=== PATIENT | female | born 1935 | race Caucasian/White ===

== ENCOUNTER 2020-12-13 12:46 | Inpatient (IN) ==
[2020-12-13 13:31] LABS: Basophils # 0.1 10*3/uL (0.0-0.2); Basophils % 0.3 % (0.0-0.8); Eosinophils % 0.2 % (0.00-10.9); Hematocrit 38.2 VOL% (35.7-47.0); Hemoglobin 12.4 GM/DL (12.0-16.0); Immature Granulocytes % 1.5 %; Immature Granulocytes Absolute 0.34 #; Lymphocytes # 2.3 10*3/uL (1.4-4.0); Lymphocytes % 10.4 % (21.3-54.2); Mean Corpuscular HGB Conc 32.5 GM/DL (32-36); Mean Corpuscular Volume 93.9 FL (87-102); Mean Platelet Volume 10.1 FL (9.6-12.0); Monocytes % 5.8 % (1.7-12.7); Neutrophils % 81.8 % (38.7-73.9); Platelet Count 347 T/CUMM (130-400); Red Blood Count 4.07 MC/CUMM (3.8-5.5); Red Cell Distribution Width 14.6 % (9.3-17.3); White Blood Count 22.5 T/CUMM (4-12)
[2020-12-13 14:00] LABS: Albumin 2.2 G/DL (3.4-5.0); Bilirubin,Total 0.6 MG/DL (0.2-1.0); Calcium 9.3 MG/DL (8.5-10.1); Potassium 4.1 MMOL/L (3.5-5.1); Total Protein 6.4 G/DL (6.4-8.2)
[2020-12-13] MEDS ORDERED: SODIUM CHLORIDE 0.9% 1,000 ML IV STA (14:00)
[2020-12-13 14:07] LABS: Lymphocytes 4 % (20-55); Segmented Neutrophils 93 % (50-85); Total Cells Counted 100
[2020-12-13 14:08] LABS: Macrocytosis 1+; Platelet Estimate Normal
[2020-12-13 14:09] LABS: Polychromasia Slight
[2020-12-13 14:33] LABS: Bilirubin,Urine Negative (Negative); Blood, Urine Negative (Negative); Glucose,Urine (UA) Negative (Negative); Ketones,Urine 5 mg/dL (Negative); Mucus,Urine Occasional /LPF (Occasional); Nitrite,Urine Negative (Negative); Protein,Urine 30 MG/DL; Urine Appearance CLOUDY (Clear); Urine Color Amber (Yellow); Urine Specific Gravity 1.014 (1.001-1.035); Urine Urobilinogen < 2.0 EU/DL (0.2-1.0); WBC,Urine 1 /HPF (0-6)
[2020-12-13] MEDS ORDERED: hydrALAZINE 20 MG/1 ML VIAL IV PRN (15:20)
[2020-12-13] MEDS ORDERED: ACETAMINOPHEN 325 MG TABLET PO PRN (15:20)
[2020-12-13] MEDS ORDERED: DEXTROSE 50% 25 GM/50 ML VIAL IV PRN (15:20)
[2020-12-13] MEDS ORDERED: ONDANSETRON 4 MG/2 ML VIAL IV PRN (15:20)
[2020-12-13] MEDS ORDERED: GLUCAGON 1 MG VIAL IM PRN (15:20)
[2020-12-13] MEDS ORDERED: DOCUSATE SODIUM 100 MG CAPSULE PO PRN (15:20)
[2020-12-13] MEDS ORDERED: cefTRIAXone 1,000 MG VIAL ONE (15:47)
[2020-12-13] MEDS ORDERED: cefTRIAXone 2,000 MG in SYRINGE 1 EACH IV ONE (16:00)
[2020-12-13] MEDS: SODIUM CHLORIDE 0.9% 1,000 ML IV SCH (17:30)
[2020-12-13] MEDS: INSULIN LISPRO 100 UNIT/ML SUBCUT SCH ×2 (17:43→21:07)
[2020-12-13] MEDS: MEMANTINE 5 MG TABLET PO SCH (21:01)
[2020-12-13] MEDS: COLCHICINE 0.6 MG CAPSULE PO SCH (21:01)
[2020-12-13] MEDS: OLANZapine 2.5 MG TABLET PO SCH (21:01)
[2020-12-13] MEDS: FUROSEMIDE 20 MG TABLET PO SCH (21:02)
[2020-12-13] MEDS: ENOXAPARIN 40 MG/0.4 ML SYRINGE SUBCUT SCH (21:02)
[2020-12-14 05:26] LABS: Basophils # 0.1 10*3/uL (0.0-0.2); Basophils % 0.4 % (0.0-0.8); Eosinophils # 0.2 10*3/uL (0.0-0.87); Eosinophils % 1.1 % (0.00-10.9); Hematocrit 34.2 VOL% (35.7-47.0); Hemoglobin 11.1 GM/DL (12.0-16.0); Immature Granulocytes % 2.5 %; Immature Granulocytes Absolute 0.39 #; Lymphocytes # 2.3 10*3/uL (1.4-4.0); Lymphocytes % 14.3 % (21.3-54.2); Mean Corpuscular HGB Conc 32.5 GM/DL (32-36); Mean Corpuscular Volume 94.5 FL (87-102); Mean Platelet Volume 10.5 FL (9.6-12.0); Monocytes % 7.3 % (1.7-12.7); Neutrophils % 74.4 % (38.7-73.9); Platelet Count 303 T/CUMM (130-400); Red Blood Count 3.62 MC/CUMM (3.8-5.5); Red Cell Distribution Width 14.6 % (9.3-17.3); White Blood Count 15.8 T/CUMM (4-12)
[2020-12-14 05:51] LABS: Albumin 1.8 G/DL (3.4-5.0); Bilirubin,Total 1.2 MG/DL (0.2-1.0); Calcium 8.6 MG/DL (8.5-10.1); Osmolality,Calculated 277.5 MOS/KG (273-304); Potassium 3.1 MMOL/L (3.5-5.1); Thyroid Stimulating Hormone 0.799 uIU/ml (0.358-3.74); Total Protein 5.8 G/DL (6.4-8.2)
[2020-12-14] MEDS: LEVOTHYROXINE 75 MCG TABLET PO SCH (06:10)
[2020-12-14] MEDS: INSULIN LISPRO 100 UNIT/ML SUBCUT SCH ×4 (07:36→20:53)
[2020-12-14] MEDS: SERTRALINE 50 MG TABLET PO SCH (08:09)
[2020-12-14] MEDS: MULTIVITAMIN (CENTRUM) TABLET PO SCH (08:09)
[2020-12-14] MEDS: COLCHICINE 0.6 MG CAPSULE PO SCH ×2 (08:09→20:37)
[2020-12-14] MEDS: OLANZapine 2.5 MG TABLET PO SCH ×2 (08:09→20:37)
[2020-12-14] MEDS: DONEPEZIL 10 MG TABLET PO SCH (08:09)
[2020-12-14] MEDS: MONTELUKAST 10 MG TABLET PO SCH (08:09)
[2020-12-14] MEDS: MEMANTINE 5 MG TABLET PO SCH ×2 (08:10→20:37)
[2020-12-14] MEDS: COENZYME Q10 50 MG PO SCH (08:10)
[2020-12-14] MEDS: FUROSEMIDE 20 MG TABLET PO SCH ×2 (08:10→20:37)
[2020-12-14] MEDS: PANTOPRAZOLE 40 MG TABLET PO SCH (08:10)
[2020-12-14] MEDS: SODIUM CHLORIDE 0.9% 1,000 ML IV SCH (08:21)
[2020-12-14] MEDS: POTASSIUM CHLORIDE 10 MEQ TABLET PO SCH (09:57)
[2020-12-14] MEDS: cefTRIAXone 2,000 MG in SYRINGE 1 EACH IV SCH (17:58)
[2020-12-14] MEDS: ENOXAPARIN 40 MG/0.4 ML SYRINGE SUBCUT SCH (20:37)
[2020-12-15] MEDS: SODIUM CHLORIDE 0.9% 1,000 ML IV SCH (01:05)
[2020-12-15 06:19] LABS: Basophils # 0.1 10*3/uL (0.0-0.2); Basophils % 0.4 % (0.0-0.8); Eosinophils # 0.1 10*3/uL (0.0-0.87); Eosinophils % 0.7 % (0.00-10.9); Hematocrit 32.4 VOL% (35.7-47.0); Hemoglobin 10.9 GM/DL (12.0-16.0); Immature Granulocytes % 1.7 %; Immature Granulocytes Absolute 0.34 #; Lymphocytes # 1.9 10*3/uL (1.4-4.0); Lymphocytes % 9.4 % (21.3-54.2); Mean Corpuscular HGB Conc 33.6 GM/DL (32-36); Mean Platelet Volume 10.8 FL (9.6-12.0); Monocytes % 6.4 % (1.7-12.7); Neutrophils % 81.4 % (38.7-73.9); Platelet Count 298 T/CUMM (130-400); Red Blood Count 3.52 MC/CUMM (3.8-5.5); Red Cell Distribution Width 14.7 % (9.3-17.3); White Blood Count 19.6 T/CUMM (4-12)
[2020-12-15] MEDS: LEVOTHYROXINE 75 MCG TABLET PO SCH (06:30)
[2020-12-15 07:03] LABS: Calcium 8.4 MG/DL (8.5-10.1); Potassium 2.9 MMOL/L (3.5-5.1)
[2020-12-15] MEDS: INSULIN LISPRO 100 UNIT/ML SUBCUT SCH ×4 (07:29→20:55)
[2020-12-15] MEDS: COLCHICINE 0.6 MG CAPSULE PO SCH ×2 (08:41→20:53)
[2020-12-15] MEDS: OLANZapine 2.5 MG TABLET PO SCH ×2 (08:41→20:53)
[2020-12-15] MEDS: COENZYME Q10 50 MG PO SCH (08:41)
[2020-12-15] MEDS: PANTOPRAZOLE 40 MG TABLET PO SCH (08:42)
[2020-12-15] MEDS: DONEPEZIL 10 MG TABLET PO SCH (08:42)
[2020-12-15] MEDS: FUROSEMIDE 20 MG TABLET PO SCH (08:42)
[2020-12-15] MEDS: POTASSIUM CHLORIDE 10 MEQ TABLET PO SCH (08:42)
[2020-12-15] MEDS: MEMANTINE 5 MG TABLET PO SCH ×2 (08:42→20:53)
[2020-12-15] MEDS: MONTELUKAST 10 MG TABLET PO SCH (08:42)
[2020-12-15] MEDS: SERTRALINE 50 MG TABLET PO SCH (08:42)
[2020-12-15] MEDS: MULTIVITAMIN (CENTRUM) TABLET PO SCH (08:42)
[2020-12-15] MEDS: SODIUM CHLOR 0.9% KCL 20 MEQ 20 MEQ/1,000 ML BAG IV SCH (09:46)
[2020-12-15] MEDS: cefTRIAXone 2,000 MG in SYRINGE 1 EACH IV SCH (16:29)
[2020-12-15] MEDS: ENOXAPARIN 40 MG/0.4 ML SYRINGE SUBCUT SCH (20:53)
[2020-12-16] MEDS: SODIUM CHLOR 0.9% KCL 20 MEQ 20 MEQ/1,000 ML BAG IV SCH (05:01)
[2020-12-16 05:29] LABS: Basophils # 0.1 10*3/uL (0.0-0.2); Basophils % 0.6 % (0.0-0.8); Eosinophils # 0.2 10*3/uL (0.0-0.87); Hematocrit 31.7 VOL% (35.7-47.0); Hemoglobin 10.8 GM/DL (12.0-16.0); Immature Granulocytes % 2.3 %; Immature Granulocytes Absolute 0.41 #; Lymphocytes # 1.8 10*3/uL (1.4-4.0); Lymphocytes % 10.1 % (21.3-54.2); Mean Corpuscular HGB Conc 34.1 GM/DL (32-36); Mean Corpuscular Volume 90.8 FL (87-102); Mean Platelet Volume 10.7 FL (9.6-12.0); Monocytes % 6.1 % (1.7-12.7); Neutrophils % 79.9 % (38.7-73.9); Platelet Count 299 T/CUMM (130-400); Red Blood Count 3.49 MC/CUMM (3.8-5.5); Red Cell Distribution Width 14.6 % (9.3-17.3); White Blood Count 17.6 T/CUMM (4-12)
[2020-12-16 05:46] LABS: Calcium 8.1 MG/DL (8.5-10.1); Potassium 2.7 MMOL/L (3.5-5.1)
[2020-12-16] MEDS: LEVOTHYROXINE 75 MCG TABLET PO SCH (06:19)
[2020-12-16] MEDS: SERTRALINE 50 MG TABLET PO SCH (09:35)
[2020-12-16] MEDS: MULTIVITAMIN (CENTRUM) TABLET PO SCH (09:35)
[2020-12-16] MEDS: MEMANTINE 5 MG TABLET PO SCH ×2 (09:35→22:33)
[2020-12-16] MEDS: PANTOPRAZOLE 40 MG TABLET PO SCH (09:35)
[2020-12-16] MEDS: COLCHICINE 0.6 MG CAPSULE PO SCH ×2 (09:35→22:33)
[2020-12-16] MEDS: DONEPEZIL 10 MG TABLET PO SCH (09:35)
[2020-12-16] MEDS: MONTELUKAST 10 MG TABLET PO SCH (09:35)
[2020-12-16] MEDS: COENZYME Q10 50 MG PO SCH (09:36)
[2020-12-16] MEDS: FUROSEMIDE 20 MG TABLET PO SCH (09:36)
[2020-12-16] MEDS: POTASSIUM CHLORIDE 10 MEQ TABLET PO SCH (09:36)
[2020-12-16] MEDS: OLANZapine 2.5 MG TABLET PO SCH ×2 (09:36→22:33)
[2020-12-16] MEDS: POTASSIUM CHLORIDE 20 MEQ TABLET PO SCH ×2 (09:39→12:30)
[2020-12-16] MEDS: INSULIN LISPRO 100 UNIT/ML SUBCUT SCH ×4 (09:48→22:23)
[2020-12-16] MEDS ORDERED: POTASSIUM CHLORIDE 20 MEQ TABLET PO SCH (12:30)
[2020-12-16] MEDS: cefTRIAXone 2,000 MG in SYRINGE 1 EACH IV SCH (18:50)
[2020-12-17 06:19] LABS: Calcium 8.6 MG/DL (8.5-10.1); Osmolality,Calculated 275.7 MOS/KG (273-304); Potassium 4.4 MMOL/L (3.5-5.1)
[2020-12-17] MEDS: LEVOTHYROXINE 75 MCG TABLET PO SCH (06:19)
[2020-12-17] MEDS ORDERED: MAGNESIUM SULF RIDER 4 GM in PREMIX 1 EACH IV PRN (07:03)
[2020-12-17] MEDS ORDERED: MAGNESIUM SULF RIDER 2 GM in PREMIX 1 EACH IV PRN (07:03)
[2020-12-17 07:19] LABS: Basophils # 0.1 10*3/uL (0.0-0.2); Basophils % 0.7 % (0.0-0.8); Eosinophils # 0.3 10*3/uL (0.0-0.87); Eosinophils % 1.6 % (0.00-10.9); Hematocrit 36.3 VOL% (35.7-47.0); Hemoglobin 12.7 GM/DL (12.0-16.0); Immature Granulocytes % 3.1 %; Immature Granulocytes Absolute 0.58 #; Lymphocytes # 2.9 10*3/uL (1.4-4.0); Lymphocytes % 15.2 % (21.3-54.2); Mean Corpuscular Volume 89.6 FL (87-102); Mean Platelet Volume 12.4 FL (9.6-12.0); Monocytes % 6.3 % (1.7-12.7); Neutrophils % 73.1 % (38.7-73.9); Platelet Count 277 T/CUMM (130-400); Red Blood Count 4.05 MC/CUMM (3.8-5.5); Red Cell Distribution Width 14.8 % (9.3-17.3); White Blood Count 18.9 T/CUMM (4-12)
[2020-12-17 07:31] LABS: Band Neutrophils 1 % (0-10); Eosinophils 3 % (0-10); Lymphocytes 13 % (20-55); Microcytosis Slight; Ovalocytes Slight; Platelet Estimate Adequate; Segmented Neutrophils 77 % (50-85); Total Cells Counted 100
[2020-12-17] MEDS ORDERED: LACTATED RINGERS 1,000 ML IV SCH (08:00)
[2020-12-17] MEDS ORDERED: fentaNYL 100 MCG/2 ML VIAL ONE (08:20)
[2020-12-17] MEDS ORDERED: BUPIVACAINE MPF 0.25% 30 ML VIAL ONE (08:20)
[2020-12-17] MEDS ORDERED: ETOMIDATE 40 MG/20 ML VIAL IV ONE (08:21)
[2020-12-17] MEDS ORDERED: propofoL 200 MG/20 ML VIAL IV ONE (08:21)
[2020-12-17] MEDS ORDERED: MIDAZOLAM 2 MG/2 ML VIAL ONE (08:23)
[2020-12-17] MEDS ORDERED: LIDOCAINE 2% 5 ML VIAL ONE (08:23)
[2020-12-17] MEDS: INSULIN LISPRO 100 UNIT/ML SUBCUT SCH ×4 (09:48→22:07)
[2020-12-17] MEDS: OLANZapine 2.5 MG TABLET PO SCH ×2 (11:01→22:25)
[2020-12-17] MEDS: DONEPEZIL 10 MG TABLET PO SCH (11:01)
[2020-12-17] MEDS: MEMANTINE 5 MG TABLET PO SCH ×2 (11:01→22:26)
[2020-12-17] MEDS: PANTOPRAZOLE 40 MG TABLET PO SCH (11:02)
[2020-12-17] MEDS: COLCHICINE 0.6 MG CAPSULE PO SCH ×2 (11:02→22:25)
[2020-12-17] MEDS: COENZYME Q10 100 MG CAPSULE PO SCH (11:02)
[2020-12-17] MEDS: MULTIVITAMIN (CENTRUM) TABLET PO SCH (11:02)
[2020-12-17] MEDS: SERTRALINE 50 MG TABLET PO SCH (11:02)
[2020-12-17] MEDS: POTASSIUM CHLORIDE 10 MEQ TABLET PO SCH (11:02)
[2020-12-17] MEDS: MONTELUKAST 10 MG TABLET PO SCH (11:02)
[2020-12-17] MEDS: FUROSEMIDE 20 MG TABLET PO SCH (11:02)
[2020-12-17] MEDS ORDERED: SODIUM CHLORIDE 0.9% 500 ML IV ONE (11:53)
[2020-12-17] MEDS: cefTRIAXone 2,000 MG in SYRINGE 1 EACH IV SCH (17:51)
[2020-12-18] MEDS: LEVOTHYROXINE 75 MCG TABLET PO SCH ×2 (05:22→07:02)
[2020-12-18 05:59] LABS: Basophils # 0.1 10*3/uL (0.0-0.2); Basophils % 0.6 % (0.0-0.8); Eosinophils # 0.5 10*3/uL (0.0-0.87); Eosinophils % 2.6 % (0.00-10.9); Hematocrit 31.8 VOL% (35.7-47.0); Hemoglobin 10.5 GM/DL (12.0-16.0); Immature Granulocytes % 1.9 %; Immature Granulocytes Absolute 0.33 #; Lymphocytes # 2.2 10*3/uL (1.4-4.0); Lymphocytes % 12.9 % (21.3-54.2); Mean Platelet Volume 10.3 FL (9.6-12.0); Platelet Count 303 T/CUMM (130-400); Red Blood Count 3.42 MC/CUMM (3.8-5.5); Red Cell Distribution Width 14.9 % (9.3-17.3); White Blood Count 17.1 T/CUMM (4-12)
[2020-12-18 06:15] LABS: Calcium 8.3 MG/DL (8.5-10.1); Osmolality,Calculated 272.8 MOS/KG (273-304); Potassium 3.1 MMOL/L (3.5-5.1)
[2020-12-18] MEDS: FUROSEMIDE 20 MG TABLET PO SCH (08:43)
[2020-12-18] MEDS: MEMANTINE 5 MG TABLET PO SCH (08:44)
[2020-12-18] MEDS: POTASSIUM CHLORIDE 10 MEQ TABLET PO SCH (08:44)
[2020-12-18] MEDS: OLANZapine 2.5 MG TABLET PO SCH (08:44)
[2020-12-18] MEDS: SERTRALINE 50 MG TABLET PO SCH (08:44)
[2020-12-18] MEDS: DONEPEZIL 10 MG TABLET PO SCH (08:44)
[2020-12-18] MEDS: PANTOPRAZOLE 40 MG TABLET PO SCH (08:44)
[2020-12-18] MEDS: COENZYME Q10 100 MG CAPSULE PO SCH (08:44)
[2020-12-18] MEDS: MULTIVITAMIN (CENTRUM) TABLET PO SCH (08:44)
[2020-12-18] MEDS: COLCHICINE 0.6 MG CAPSULE PO SCH (08:44)
[2020-12-18] MEDS: MONTELUKAST 10 MG TABLET PO SCH (08:44)
[2020-12-18] MEDS: INSULIN LISPRO 100 UNIT/ML SUBCUT SCH (09:06)
[2020-12-18] MEDS ORDERED: SODIUM HYPOCHLORITE 0.25% IRRIG 473 ML BOTTLE TOP SCH (10:00)
[2020-12-18] MEDS ORDERED: POTASSIUM CHLORIDE 20 MEQ TABLET PO ONE (11:00)
[2020-12-18 11:49] VITALS: BP 119/53
== END 2020-12-18 12:16 | DRG 570 ==
LOC: EDBD → EDUNIT# → N.EDINP 12:46 → N.ED 12:46 → SUATTDRO 15:20 → N.EDINP 16:44 → N.5E 17:18
PROVIDERS: ADMIT Emergency Medicine; ATTEND Internal Medicine

== ENCOUNTER 2021-01-01 11:07 | Inpatient (IN) ==
[2021-01-01 12:08] LABS: Bilirubin,Urine Negative (Negative); Blood, Urine Small mg/dL (Negative); Glucose,Urine (UA) Negative (Negative); Ketones,Urine 5 mg/dL (Negative); Mucus,Urine Occasional /LPF (Occasional); Nitrite,Urine Negative (Negative); Protein,Urine Negative; RBC,Urine 14 /HPF (0-4); Squamous Epithelial Cell,Urine Few /HPF (0-10); Urine Appearance Slightly Hazy (Clear); Urine Color Amber (Yellow); Urine Specific Gravity 1.017 (1.001-1.035); Urine Urobilinogen < 2.0 EU/DL (0.2-1.0); WBC,Urine 2 /HPF (0-6)
[2021-01-01 12:24] LABS: Basophils # 0.1 10*3/uL (0.0-0.2); Basophils % 0.3 % (0.0-0.8); Hematocrit 36.8 VOL% (35.7-47.0); Hemoglobin 12.1 GM/DL (12.0-16.0); Lymphocytes # 0.9 10*3/uL (1.4-4.0); Lymphocytes % 4.2 % (21.3-54.2); Mean Corpuscular HGB Conc 32.9 GM/DL (32-36); Mean Corpuscular Volume 93.4 FL (87-102); Mean Platelet Volume 10.2 FL (9.6-12.0); Monocytes % 5.1 % (1.7-12.7); Neutrophils % 88.4 % (38.7-73.9); Platelet Count 346 T/CUMM (130-400); Red Blood Count 3.94 MC/CUMM (3.8-5.5); Red Cell Distribution Width 17.1 % (9.3-17.3)
[2021-01-01 12:53] LABS: Albumin 1.8 G/DL (3.4-5.0); Bilirubin,Total 0.6 MG/DL (0.2-1.0); Calcium 9.4 MG/DL (8.5-10.1); Osmolality,Calculated 275.2 MOS/KG (273-304); Potassium 4.3 MMOL/L (3.5-5.1); Total Protein 6.2 G/DL (6.4-8.2)
[2021-01-01 13:16] LABS: Macrocytosis Slight; Myelocytes 2 %; Platelet Estimate Increased; Segmented Neutrophils 95 % (50-85); Total Cells Counted 100
[2021-01-01] MEDS ORDERED: SODIUM CHLORIDE 0.9% 1,000 ML IV STA (13:16)
[2021-01-01 13:18] LABS: Anisocytosis 1+; Hypochromasia Slight; Polychromasia 1+; Toxic Granulation 2+
[2021-01-01] MEDS ORDERED: SODIUM CHLORIDE 0.9% 2,000 ML IV ONE (13:24)
[2021-01-01] MEDS ORDERED: PIPERACILLIN/TAZOBACTAM 3,375 MG VIAL IV ONE (13:36)
[2021-01-01] MEDS ORDERED: SODIUM CHLORIDE 0.9% 100 ML IV ONE (13:37)
[2021-01-01] MEDS: PIPERACILLIN/TAZOBACTAM 3,375 MG in SODIUM CHLORIDE 0.9% 100 ML IV SCH ×2 (13:44→22:25)
[2021-01-01] MEDS ORDERED: ONDANSETRON 4 MG/2 ML VIAL IV PRN (14:03)
[2021-01-01] MEDS ORDERED: GLUCAGON 1 MG VIAL IM PRN ×2 (14:03→18:20)
[2021-01-01] MEDS ORDERED: VANCOMYCIN 1,000 MG VIAL ONE (14:06)
[2021-01-01] MEDS ORDERED: ENOXAPARIN 60 MG/0.6 ML SYRINGE SUBCUT SCH (14:30)
[2021-01-01] MEDS ORDERED: VANCOMYCIN INJ 1,500 MG in SODIUM CHLORIDE 0.9% 500 ML IV ONE (15:00)
[2021-01-01] MEDS ORDERED: ENOXAPARIN 30 MG/0.3 ML SYRINGE SUBCUT SCH (16:00)
[2021-01-01] MEDS ORDERED: SODIUM CHLORIDE 0.9% 500 ML IV ONE (17:16)
[2021-01-01] MEDS: SODIUM CHLORIDE 0.9% 1,000 ML IV SCH ×2 (17:25→20:52)
[2021-01-01] MEDS ORDERED: SODIUM CHLORIDE 0.9% 250 ML IV ONE (18:17)
[2021-01-01] MEDS ORDERED: DEXTROSE 50% 25 GM/50 ML VIAL IV PRN (18:20)
[2021-01-01] MEDS: ENOXAPARIN 60 MG/0.6 ML SYRINGE SUBCUT SCH (22:47)
[2021-01-02] MEDS: DEXTROSE 50% 25 GM/50 ML VIAL IV PRN ×3 (01:25→22:26)
[2021-01-02] MEDS ORDERED: SODIUM CHLORIDE 0.9% 500 ML IV ONE (02:05)
[2021-01-02 04:06] LABS: Amorphous Crystals,Urine Occasional /HPF (Few); Bacteria,Urine Moderate /HPF (Few); Bilirubin,Urine Negative (Negative); Blood, Urine Small mg/dL (Negative); Glucose,Urine (UA) Negative (Negative); Ketones,Urine Negative (Negative); Mucus,Urine Moderate /LPF (Occasional); Nitrite,Urine Negative (Negative); Protein,Urine Negative; RBC,Urine 6 /HPF (0-4); Squamous Epithelial Cell,Urine Many /HPF (0-10); Urine Appearance CLOUDY (Clear); Urine Color Yellow (Yellow); Urine Specific Gravity 1.009 (1.001-1.035); Urine Urobilinogen < 2.0 EU/DL (0.2-1.0); WBC,Urine 27 /HPF (0-6)
[2021-01-02 04:49] LABS: Basophils % 0.3 % (0.0-0.8); Eosinophils # 0.1 10*3/uL (0.0-0.87); Eosinophils % 0.4 % (0.00-10.9); Hemoglobin 10.1 GM/DL (12.0-16.0); Immature Granulocytes % 1.6 %; Immature Granulocytes Absolute 0.22 #; Lymphocytes # 1.8 10*3/uL (1.4-4.0); Lymphocytes % 12.4 % (21.3-54.2); Mean Corpuscular HGB Conc 33.7 GM/DL (32-36); Mean Corpuscular Volume 92.6 FL (87-102); Mean Platelet Volume 10.8 FL (9.6-12.0); Monocytes % 8.5 % (1.7-12.7); Neutrophils % 76.8 % (38.7-73.9); Platelet Count 271 T/CUMM (130-400); Red Blood Count 3.24 MC/CUMM (3.8-5.5); Red Cell Distribution Width 17.1 % (9.3-17.3); White Blood Count 14.2 T/CUMM (4-12)
[2021-01-02 05:20] LABS: Calcium 7.9 MG/DL (8.5-10.1); Osmolality,Calculated 280.5 MOS/KG (273-304); Potassium 3.3 MMOL/L (3.5-5.1)
[2021-01-02] MEDS: PIPERACILLIN/TAZOBACTAM 3,375 MG in SODIUM CHLORIDE 0.9% 100 ML IV SCH ×3 (06:00→22:33)
[2021-01-02] MEDS: SODIUM CHLORIDE 0.9% 1,000 ML IV SCH ×2 (07:07→22:24)
[2021-01-02] MEDS: VANCOMYCIN INJ 1,000 MG in SODIUM CHLORIDE 0.9% 250 ML IV SCH (09:07)
[2021-01-02] MEDS: ENOXAPARIN 60 MG/0.6 ML SYRINGE SUBCUT SCH (09:08)
[2021-01-02] MEDS: POTASSIUM CHLORIDE RIDER 10 MEQ in PREMIX 1 EACH IV PRN (17:39)
[2021-01-02] MEDS: APIXABAN 5 MG TABLET PO SCH (22:21)
[2021-01-03] MEDS: SODIUM CHLORIDE 0.9% 1,000 ML IV SCH (02:43)
[2021-01-03] MEDS: VANCOMYCIN INJ 1,000 MG in SODIUM CHLORIDE 0.9% 250 ML IV SCH ×2 (02:45→23:03)
[2021-01-03 05:45] LABS: Basophils % 0.4 % (0.0-0.8); Eosinophils # 0.1 10*3/uL (0.0-0.87); Eosinophils % 0.6 % (0.00-10.9); Hematocrit 28.9 VOL% (35.7-47.0); Hemoglobin 9.5 GM/DL (12.0-16.0); Immature Granulocytes % 2.3 %; Immature Granulocytes Absolute 0.26 #; Lymphocytes # 2.2 10*3/uL (1.4-4.0); Lymphocytes % 19.8 % (21.3-54.2); Mean Corpuscular HGB Conc 32.9 GM/DL (32-36); Mean Corpuscular Volume 95.4 FL (87-102); Mean Platelet Volume 10.6 FL (9.6-12.0); Monocytes % 10.6 % (1.7-12.7); Neutrophils % 66.3 % (38.7-73.9); Platelet Count 232 T/CUMM (130-400); Red Blood Count 3.03 MC/CUMM (3.8-5.5); Red Cell Distribution Width 17.3 % (9.3-17.3); White Blood Count 11.3 T/CUMM (4-12)
[2021-01-03 06:07] LABS: Calcium 7.8 MG/DL (8.5-10.1); Osmolality,Calculated 274.8 MOS/KG (273-304); Potassium 2.8 MMOL/L (3.5-5.1)
[2021-01-03] MEDS: APIXABAN 5 MG TABLET PO SCH ×3 (09:17→23:08)
[2021-01-03] MEDS: PIPERACILLIN/TAZOBACTAM 3,375 MG in SODIUM CHLORIDE 0.9% 100 ML IV SCH ×2 (09:23→16:43)
[2021-01-03] MEDS: POTASSIUM CHLORIDE INJ 20 MEQ in LACTATED RINGERS 1,000 ML IV SCH (12:53)
[2021-01-04] MEDS: PIPERACILLIN/TAZOBACTAM 3,375 MG in SODIUM CHLORIDE 0.9% 100 ML IV SCH ×3 (01:08→17:12)
[2021-01-04] MEDS: POTASSIUM CHLORIDE INJ 20 MEQ in LACTATED RINGERS 1,000 ML IV SCH ×3 (01:52→15:39)
[2021-01-04] MEDS: APIXABAN 5 MG TABLET PO SCH ×2 (08:49→20:31)
[2021-01-04 10:09] LABS: Basophils % 0.3 % (0.0-0.8); Eosinophils # 0.1 10*3/uL (0.0-0.87); Eosinophils % 0.7 % (0.00-10.9); Hematocrit 29.9 VOL% (35.7-47.0); Hemoglobin 9.9 GM/DL (12.0-16.0); Immature Granulocytes % 1.1 %; Immature Granulocytes Absolute 0.13 #; Lymphocytes # 1.6 10*3/uL (1.4-4.0); Lymphocytes % 13.3 % (21.3-54.2); Mean Corpuscular HGB Conc 33.1 GM/DL (32-36); Mean Corpuscular Volume 94.6 FL (87-102); Mean Platelet Volume 10.1 FL (9.6-12.0); Monocytes % 6.6 % (1.7-12.7); Platelet Count 276 T/CUMM (130-400); Red Blood Count 3.16 MC/CUMM (3.8-5.5); Red Cell Distribution Width 17.4 % (9.3-17.3)
[2021-01-04 10:29] LABS: Calcium 7.9 MG/DL (8.5-10.1); Osmolality,Calculated 274.7 MOS/KG (273-304); Potassium 3.6 MMOL/L (3.5-5.1)
[2021-01-04] MEDS: VANCOMYCIN INJ 1,000 MG in SODIUM CHLORIDE 0.9% 250 ML IV SCH (16:04)
[2021-01-05] MEDS: DEXTROSE 50% 25 GM/50 ML VIAL IV PRN ×3 (01:29→19:54)
[2021-01-05] MEDS: PIPERACILLIN/TAZOBACTAM 3,375 MG in SODIUM CHLORIDE 0.9% 100 ML IV SCH ×3 (01:35→17:04)
[2021-01-05 06:03] LABS: Basophils # 0.1 10*3/uL (0.0-0.2); Basophils % 0.5 % (0.0-0.8); Eosinophils # 0.2 10*3/uL (0.0-0.87); Eosinophils % 1.8 % (0.00-10.9); Hematocrit 29.1 VOL% (35.7-47.0); Hemoglobin 9.7 GM/DL (12.0-16.0); Immature Granulocytes % 1.7 %; Immature Granulocytes Absolute 0.16 #; Lymphocytes # 2.2 10*3/uL (1.4-4.0); Lymphocytes % 23.2 % (21.3-54.2); Mean Corpuscular HGB Conc 33.3 GM/DL (32-36); Mean Corpuscular Volume 91.8 FL (87-102); Mean Platelet Volume 9.9 FL (9.6-12.0); Monocytes % 9.7 % (1.7-12.7); Neutrophils % 63.1 % (38.7-73.9); Platelet Count 256 T/CUMM (130-400); Red Blood Count 3.17 MC/CUMM (3.8-5.5); Red Cell Distribution Width 17.5 % (9.3-17.3); White Blood Count 9.4 T/CUMM (4-12)
[2021-01-05] MEDS: POTASSIUM CHLORIDE INJ 20 MEQ in LACTATED RINGERS 1,000 ML IV SCH ×2 (06:21→14:14)
[2021-01-05 06:30] LABS: Calcium 7.5 MG/DL (8.5-10.1); Osmolality,Calculated 275.5 MOS/KG (273-304); Potassium 3.4 MMOL/L (3.5-5.1)
[2021-01-05] MEDS: APIXABAN 5 MG TABLET PO SCH ×2 (09:18→20:56)
[2021-01-05] MEDS: POTASSIUM CHLORIDE RIDER 10 MEQ in PREMIX 1 EACH IV PRN ×3 (09:20→14:15)
[2021-01-05] MEDS: COLCHICINE 0.6 MG CAPSULE PO SCH (20:57)
[2021-01-05] MEDS: OLANZapine 2.5 MG TABLET PO SCH (20:57)
[2021-01-05] MEDS: MEMANTINE 5 MG TABLET PO SCH (20:57)
[2021-01-06] MEDS: PIPERACILLIN/TAZOBACTAM 3,375 MG in SODIUM CHLORIDE 0.9% 100 ML IV SCH ×3 (02:40→17:50)
[2021-01-06] MEDS: DEXTROSE 50% 25 GM/50 ML VIAL IV PRN (02:42)
[2021-01-06] MEDS: POTASSIUM CHLORIDE INJ 20 MEQ in LACTATED RINGERS 1,000 ML IV SCH (02:51)
[2021-01-06 05:16] LABS: Basophils % 0.4 % (0.0-0.8); Eosinophils # 0.2 10*3/uL (0.0-0.87); Eosinophils % 2.1 % (0.00-10.9); Hematocrit 27.3 VOL% (35.7-47.0); Hemoglobin 9.3 GM/DL (12.0-16.0); Immature Granulocytes % 1.1 %; Immature Granulocytes Absolute 0.13 #; Lymphocytes # 2.1 10*3/uL (1.4-4.0); Lymphocytes % 18.2 % (21.3-54.2); Mean Corpuscular HGB Conc 34.1 GM/DL (32-36); Mean Corpuscular Volume 92.5 FL (87-102); Mean Platelet Volume 10.9 FL (9.6-12.0); Monocytes % 10.2 % (1.7-12.7); Platelet Count 220 T/CUMM (130-400); Red Blood Count 2.95 MC/CUMM (3.8-5.5); Red Cell Distribution Width 17.6 % (9.3-17.3); White Blood Count 11.4 T/CUMM (4-12)
[2021-01-06 05:28] LABS: Calcium 7.7 MG/DL (8.5-10.1); Osmolality,Calculated 274.7 MOS/KG (273-304); Potassium 3.6 MMOL/L (3.5-5.1)
[2021-01-06] MEDS: LEVOTHYROXINE 75 MCG TABLET PO SCH (06:24)
[2021-01-06] MEDS: APIXABAN 5 MG TABLET PO SCH (09:14)
[2021-01-06] MEDS: COLCHICINE 0.6 MG CAPSULE PO SCH ×2 (09:22→22:14)
[2021-01-06] MEDS: MULTIVITAMIN (CENTRUM) TABLET PO SCH (09:22)
[2021-01-06] MEDS: SERTRALINE 50 MG TABLET PO SCH (09:23)
[2021-01-06] MEDS: DONEPEZIL 10 MG TABLET PO SCH (09:24)
[2021-01-06] MEDS: OLANZapine 2.5 MG TABLET PO SCH ×2 (09:24→22:13)
[2021-01-06] MEDS: MONTELUKAST 10 MG TABLET PO SCH (09:24)
[2021-01-06] MEDS: MEMANTINE 5 MG TABLET PO SCH ×2 (09:24→22:14)
[2021-01-06] MEDS: MEGESTROL 400 MG/10 ML UDCUP PO SCH (09:26)
[2021-01-06] MEDS: PANTOPRAZOLE 40 MG TABLET PO SCH (09:51)
[2021-01-06] MEDS ORDERED: FONDAPARINUX 2.5 MG/0.5 ML SYRINGE SUBCUT SCH (16:00)
[2021-01-06] MEDS: DEXTROSE 5% 1,000 ML IV SCH (18:09)
[2021-01-06] MEDS: ENOXAPARIN 80 MG/0.8 ML SYRINGE SUBCUT SCH (22:15)
[2021-01-07] MEDS: PIPERACILLIN/TAZOBACTAM 3,375 MG in SODIUM CHLORIDE 0.9% 100 ML IV SCH ×3 (00:54→17:46)
[2021-01-07] MEDS: LEVOTHYROXINE 75 MCG TABLET PO SCH (06:07)
[2021-01-07] MEDS: DEXTROSE 5% 1,000 ML IV SCH ×2 (06:09→21:40)
[2021-01-07 06:48] LABS: Basophils # 0.1 10*3/uL (0.0-0.2); Basophils % 0.9 % (0.0-0.8); Eosinophils # 0.4 10*3/uL (0.0-0.87); Hematocrit 30.5 VOL% (35.7-47.0); Hemoglobin 10.1 GM/DL (12.0-16.0); Immature Granulocytes % 2.4 %; Immature Granulocytes Absolute 0.25 #; Lymphocytes # 2.5 10*3/uL (1.4-4.0); Lymphocytes % 23.6 % (21.3-54.2); Mean Corpuscular HGB Conc 33.1 GM/DL (32-36); Mean Corpuscular Volume 93.3 FL (87-102); Mean Platelet Volume 10.3 FL (9.6-12.0); Monocytes % 7.6 % (1.7-12.7); Neutrophils % 61.5 % (38.7-73.9); Platelet Count 303 T/CUMM (130-400); Red Blood Count 3.27 MC/CUMM (3.8-5.5); Red Cell Distribution Width 17.6 % (9.3-17.3); White Blood Count 10.5 T/CUMM (4-12)
[2021-01-07 07:24] LABS: Calcium 7.8 MG/DL (8.5-10.1); Potassium 3.6 MMOL/L (3.5-5.1)
[2021-01-07] MEDS: COLCHICINE 0.6 MG CAPSULE PO SCH ×2 (09:12→22:13)
[2021-01-07] MEDS: ENOXAPARIN 80 MG/0.8 ML SYRINGE SUBCUT SCH ×2 (09:12→21:45)
[2021-01-07] MEDS: MONTELUKAST 10 MG TABLET PO SCH (09:12)
[2021-01-07] MEDS: MULTIVITAMIN (CENTRUM) TABLET PO SCH (09:12)
[2021-01-07] MEDS: DONEPEZIL 10 MG TABLET PO SCH (09:12)
[2021-01-07] MEDS: MEMANTINE 5 MG TABLET PO SCH ×2 (09:12→22:13)
[2021-01-07] MEDS: OLANZapine 2.5 MG TABLET PO SCH ×2 (09:13→22:13)
[2021-01-07] MEDS: MEGESTROL 400 MG/10 ML UDCUP PO SCH (09:13)
[2021-01-07] MEDS: PANTOPRAZOLE 40 MG TABLET PO SCH (09:13)
[2021-01-07] MEDS: SERTRALINE 50 MG TABLET PO SCH (09:13)
[2021-01-08] MEDS: PIPERACILLIN/TAZOBACTAM 3,375 MG in SODIUM CHLORIDE 0.9% 100 ML IV SCH ×3 (02:24→19:24)
[2021-01-08 05:02] LABS: Basophils # 0.1 10*3/uL (0.0-0.2); Basophils % 0.8 % (0.0-0.8); Eosinophils # 0.4 10*3/uL (0.0-0.87); Hematocrit 27.5 VOL% (35.7-47.0); Hemoglobin 9.2 GM/DL (12.0-16.0); Immature Granulocytes % 2.1 %; Immature Granulocytes Absolute 0.21 #; Lymphocytes # 2.8 10*3/uL (1.4-4.0); Lymphocytes % 27.7 % (21.3-54.2); Mean Corpuscular HGB Conc 33.5 GM/DL (32-36); Mean Corpuscular Volume 92.3 FL (87-102); Monocytes % 8.5 % (1.7-12.7); Neutrophils % 56.9 % (38.7-73.9); Platelet Count 289 T/CUMM (130-400); Red Blood Count 2.98 MC/CUMM (3.8-5.5); Red Cell Distribution Width 17.2 % (9.3-17.3); White Blood Count 10.1 T/CUMM (4-12)
[2021-01-08 05:26] LABS: Calcium 7.7 MG/DL (8.5-10.1); Osmolality,Calculated 267.1 MOS/KG (273-304)
[2021-01-08] MEDS ORDERED: MAGNESIUM SULF RIDER 2 GM in PREMIX 1 EACH IV ONE (07:04)
[2021-01-08] MEDS: LEVOTHYROXINE 75 MCG TABLET PO SCH (07:27)
[2021-01-08] MEDS: MEGESTROL 400 MG/10 ML UDCUP PO SCH (09:53)
[2021-01-08] MEDS: COLCHICINE 0.6 MG CAPSULE PO SCH ×2 (09:54→22:29)
[2021-01-08] MEDS: MONTELUKAST 10 MG TABLET PO SCH (09:54)
[2021-01-08] MEDS: MULTIVITAMIN (CENTRUM) TABLET PO SCH (09:54)
[2021-01-08] MEDS: PANTOPRAZOLE 40 MG TABLET PO SCH (09:55)
[2021-01-08] MEDS: MEMANTINE 5 MG TABLET PO SCH ×2 (09:55→22:29)
[2021-01-08] MEDS: OLANZapine 2.5 MG TABLET PO SCH ×2 (09:55→22:29)
[2021-01-08] MEDS: DONEPEZIL 10 MG TABLET PO SCH (09:55)
[2021-01-08] MEDS: SERTRALINE 50 MG TABLET PO SCH (09:55)
[2021-01-08] MEDS: ENOXAPARIN 80 MG/0.8 ML SYRINGE SUBCUT SCH ×2 (09:55→22:31)
[2021-01-08] MEDS: POTASSIUM CHLORIDE RIDER 10 MEQ in PREMIX 1 EACH IV PRN ×2 (16:03→19:27)
[2021-01-08] MEDS: DEXTROSE 5% 1,000 ML IV SCH (19:23)
[2021-01-09] MEDS: LEVOTHYROXINE 75 MCG TABLET PO SCH (05:30)
[2021-01-09 05:43] LABS: Calcium 7.9 MG/DL (8.5-10.1); Osmolality,Calculated 266.1 MOS/KG (273-304); Potassium 3.4 MMOL/L (3.5-5.1)
[2021-01-09] MEDS ORDERED: MAGNESIUM SULF RIDER 2 GM in PREMIX 1 EACH IV ONE (07:07)
[2021-01-09 07:38] LABS: Basophils # 0.1 10*3/uL (0.0-0.2); Basophils % 0.6 % (0.0-0.8); Eosinophils # 0.3 10*3/uL (0.0-0.87); Eosinophils % 2.4 % (0.00-10.9); Hematocrit 29.6 VOL% (35.7-47.0); Hemoglobin 9.8 GM/DL (12.0-16.0); Immature Granulocytes % 1.3 %; Immature Granulocytes Absolute 0.17 #; Lymphocytes # 2.3 10*3/uL (1.4-4.0); Lymphocytes % 17.9 % (21.3-54.2); Mean Corpuscular HGB Conc 33.1 GM/DL (32-36); Mean Corpuscular Volume 92.8 FL (87-102); Mean Platelet Volume 10.3 FL (9.6-12.0); Monocytes % 6.3 % (1.7-12.7); Neutrophils % 71.5 % (38.7-73.9); Platelet Count 283 T/CUMM (130-400); Red Blood Count 3.19 MC/CUMM (3.8-5.5); Red Cell Distribution Width 17.6 % (9.3-17.3); White Blood Count 12.6 T/CUMM (4-12)
[2021-01-09 07:46] LABS: INR 1.6; PT Patient Result 17.4 SECS (9.8-11.9)
[2021-01-09] MEDS ORDERED: fentaNYL 100 MCG/2 ML VIAL IV ONE (09:00)
[2021-01-09] MEDS ORDERED: MIDAZOLAM 2 MG/2 ML VIAL IV ONE (09:00)
[2021-01-09] MEDS: ENOXAPARIN 80 MG/0.8 ML SYRINGE SUBCUT SCH ×2 (09:50→20:58)
[2021-01-09] MEDS: DONEPEZIL 10 MG TABLET PO SCH (12:00)
[2021-01-09] MEDS: MEGESTROL 400 MG/10 ML UDCUP PO SCH (12:47)
[2021-01-09] MEDS: MULTIVITAMIN (CENTRUM) TABLET PO SCH (12:47)
[2021-01-09] MEDS: COLCHICINE 0.6 MG CAPSULE PO SCH ×2 (12:47→20:57)
[2021-01-09] MEDS: PANTOPRAZOLE 40 MG TABLET PO SCH (12:47)
[2021-01-09] MEDS: MONTELUKAST 10 MG TABLET PO SCH (12:47)
[2021-01-09] MEDS: MEMANTINE 5 MG TABLET PO SCH ×2 (12:47→20:57)
[2021-01-09] MEDS: OLANZapine 2.5 MG TABLET PO SCH ×2 (12:48→20:57)
[2021-01-09] MEDS: SERTRALINE 50 MG TABLET PO SCH (12:48)
[2021-01-09] MEDS: DESITIN 4OZ/NYSTATIN 15 GRAM MIXTURE PASTE TOP SCH ×2 (12:49→20:58)
[2021-01-09] MEDS: DEXTROSE 5% 1,000 ML IV SCH (17:51)
[2021-01-09] MEDS ORDERED: APIXABAN 5 MG TABLET PO SCH (21:00)
[2021-01-10] MEDS: LEVOTHYROXINE 75 MCG TABLET PO SCH (06:02)
[2021-01-10] MEDS: DEXTROSE 5% 1,000 ML IV SCH (06:02)
[2021-01-10 06:05] LABS: Basophils # 0.1 10*3/uL (0.0-0.2); Basophils % 0.7 % (0.0-0.8); Eosinophils # 0.2 10*3/uL (0.0-0.87); Eosinophils % 1.8 % (0.00-10.9); Hematocrit 29.4 VOL% (35.7-47.0); Hemoglobin 10.3 GM/DL (12.0-16.0); Immature Granulocytes % 1.1 %; Immature Granulocytes Absolute 0.12 #; Lymphocytes # 2.2 10*3/uL (1.4-4.0); Lymphocytes % 21.1 % (21.3-54.2); Mean Corpuscular Volume 89.1 FL (87-102); Mean Platelet Volume 9.9 FL (9.6-12.0); Neutrophils % 67.3 % (38.7-73.9); Platelet Count 303 T/CUMM (130-400); Red Cell Distribution Width 17.3 % (9.3-17.3); White Blood Count 10.6 T/CUMM (4-12)
[2021-01-10 06:34] LABS: Calcium 8.1 MG/DL (8.5-10.1); Osmolality,Calculated 264.4 MOS/KG (273-304); Potassium 3.2 MMOL/L (3.5-5.1)
[2021-01-10] MEDS: POTASSIUM CHLORIDE 20 MEQ/15 ML UDCUP PER TUBE PRN ×4 (08:40→14:57)
[2021-01-10] MEDS: MULTIVITAMIN (CENTRUM) TABLET PO SCH (08:50)
[2021-01-10] MEDS: DONEPEZIL 10 MG TABLET PO SCH (08:50)
[2021-01-10] MEDS: PANTOPRAZOLE 40 MG TABLET PO SCH (08:51)
[2021-01-10] MEDS: ENOXAPARIN 80 MG/0.8 ML SYRINGE SUBCUT SCH ×2 (08:51→22:19)
[2021-01-10] MEDS: MEGESTROL 400 MG/10 ML UDCUP PO SCH (08:51)
[2021-01-10] MEDS: COLCHICINE 0.6 MG CAPSULE PO SCH ×2 (08:51→22:19)
[2021-01-10] MEDS: MONTELUKAST 10 MG TABLET PO SCH (08:51)
[2021-01-10] MEDS: MEMANTINE 5 MG TABLET PO SCH ×2 (08:51→22:19)
[2021-01-10] MEDS: OLANZapine 2.5 MG TABLET PO SCH ×2 (08:52→22:19)
[2021-01-10] MEDS: SERTRALINE 50 MG TABLET PO SCH (08:52)
[2021-01-10] MEDS: DESITIN 4OZ/NYSTATIN 15 GRAM MIXTURE PASTE TOP SCH (08:52)
[2021-01-11] MEDS: DESITIN 4OZ/NYSTATIN 15 GRAM MIXTURE PASTE TOP SCH ×2 (01:18→09:21)
[2021-01-11 05:55] LABS: Basophils # 0.1 10*3/uL (0.0-0.2); Basophils % 0.6 % (0.0-0.8); Eosinophils # 0.2 10*3/uL (0.0-0.87); Eosinophils % 1.7 % (0.00-10.9); Hematocrit 32.2 VOL% (35.7-47.0); Hemoglobin 10.7 GM/DL (12.0-16.0); Immature Granulocytes % 1.1 %; Immature Granulocytes Absolute 0.15 #; Lymphocytes % 21.4 % (21.3-54.2); Mean Corpuscular HGB Conc 33.2 GM/DL (32-36); Mean Corpuscular Volume 95.3 FL (87-102); Mean Platelet Volume 9.7 FL (9.6-12.0); Monocytes % 8.1 % (1.7-12.7); Neutrophils % 67.1 % (38.7-73.9); Platelet Count 284 T/CUMM (130-400); Red Blood Count 3.38 MC/CUMM (3.8-5.5); Red Cell Distribution Width 17.6 % (9.3-17.3); White Blood Count 13.8 T/CUMM (4-12)
[2021-01-11 06:07] LABS: Calcium 8.1 MG/DL (8.5-10.1); Osmolality,Calculated 267.2 MOS/KG (273-304); Potassium 4.6 MMOL/L (3.5-5.1)
[2021-01-11] MEDS: LEVOTHYROXINE 75 MCG TABLET PO SCH (06:34)
[2021-01-11 07:20] VITALS: BP 99/57
[2021-01-11] MEDS: MEGESTROL 400 MG/10 ML UDCUP PO SCH (09:16)
[2021-01-11] MEDS: OLANZapine 2.5 MG TABLET PO SCH (09:16)
[2021-01-11] MEDS: MULTIVITAMIN (CENTRUM) TABLET PO SCH (09:16)
[2021-01-11] MEDS: ENOXAPARIN 80 MG/0.8 ML SYRINGE SUBCUT SCH (09:17)
[2021-01-11] MEDS: SERTRALINE 50 MG TABLET PO SCH (09:17)
[2021-01-11] MEDS: COLCHICINE 0.6 MG CAPSULE PO SCH (09:17)
[2021-01-11] MEDS: PANTOPRAZOLE 40 MG TABLET PO SCH (09:17)
[2021-01-11] MEDS: DONEPEZIL 10 MG TABLET PO SCH (09:17)
[2021-01-11] MEDS: MEMANTINE 5 MG TABLET PO SCH (09:17)
[2021-01-11] MEDS: MONTELUKAST 10 MG TABLET PO SCH (09:17)
== END 2021-01-11 11:28 | DRG 592 ==
LOC: EDBD → EDUNIT# → N.ED 11:07 → N.EDINP 11:07 → N.TELES 16:33 → SUATTDRO 01-02 16:28
PROVIDERS: ADMIT Hospitalist; ATTEND Internal Medicine